=== PATIENT | female | born 1935 | race Caucasian/White ===

== ENCOUNTER 2017-03-12 22:35 | Emergency (ER) | payer MEDICARE, MEDICAID ==
[2017-03-12] MEDS ORDERED: ACETAMINOPHEN 325 MG TABLET PO ONE (23:05)
--- NOTE | 2017-03-12 23:25 | ER Document Report ---
ED General - General Chief Complaint: Fall Stated Complaint: FALL,HIP PAIN Time Seen by Provider: 03/12/17 23:00 Mode of Arrival: Stretcher Information source: Patient, Emergency Med Personnel, Outside Facility Records Cannot obtain history due to: Dementia TRAVEL OUTSIDE OF THE [place] IN LAST 30 DAYS: No - HPI Notes: Patient is a 82-year-old female history of dementia comes from local [facility] with report that she usually only gets around in a wheelchair but she attempted to get out of bed and slid down to the floor, presents now with complaint of left knee pain, right elbow pain right lateral chest wall pain and neck and upper back pain. She also reports pain to the posterior pelvis. She denies any loss of consciousness or weakness or headache or head injury. Patient was alert and interactive with stable vital signs for EMS. - Related Data Allergies/Adverse Reactions: Sulfa (Sulfonamide Antibiotics) Allergy (Severe, Verified 01/17/16 11:31) Hives Quinolones Adverse Reaction (Severe, Verified 01/17/16 11:31) Hives Past Medical History - General Information source: Patient - Social History Smoking Status: Never Smoker Frequency of alcohol use: None Drug Abuse: None Lives with: Alf Family History: Reviewed & Not Pertinent - Past Medical History Cardiac Medical History: Reports: Hx Coronary Artery Disease, Hx Hypertension, Hx Peripheral Vascular Disease Pulmonary Medical History: Reports: Hx COPD Endocrine Medical History: Reports: Hx Diabetes Mellitus Type 2 GI Medical History: Reports: Hx Gastroesophageal Reflux Disease Musculoskeltal Medical History: Reports Hx Arthritis Past Surgical History: Reports: Hx Appendectomy, Hx Cholecystectomy, Hx Hysterectomy - Immunizations Immunizations up to date: Yes Hx Pneumococcal Vaccination: 11/01/10 Review of Systems - Review of Systems Notes: REVIEW OF SYSTEMS: CONSTITUTIONAL : Denies fever, chills, or sweats. Denies recent illness. EENT: Denies eye, ear, throat, or mouth pain or symptoms. Denies nasal or sinus congestion or discharge. Denies throat, tongue, or mouth swelling or difficulty swallowing. CARDIOVASCULAR: Patient denies any anterior left sided chest pain. Denies palpitations or racing or irregular heart beat. Denies ankle edema. RESPIRATORY: Denies cough, cold, or chest congestion. Denies shortness of breath, difficulty breathing, or wheezing. GASTROINTESTINAL: Denies abdominal pain or distention. Denies nausea, vomiting , or diarrhea. Denies blood in vomitus, stools, or per rectum. Denies black, tarry stools. Denies constipation. GENITOURINARY: Denies difficulty urinating, painful urination, burning, frequency, blood in urine, or discharge. FEMALE GENITOURINARY: Denies vaginal bleeding, heavy or abnormal periods, irregular periods. Denies vaginal discharge or odor. MUSCULOSKELETAL: See history of present illness SKIN: Denies rash, lesions or sores. HEMATOLOGIC : Denies easy bruising or bleeding. LYMPHATIC: Denies swollen, enlarged glands. NEUROLOGICAL: Chronic confusion and dementia unchanged. Denies passing out or loss of consciousness. Denies headache. Denies weakness or paralysis or loss of use of either side. Denies problems with gait or speech. Denies sensory loss, numbness, or tingling. Denies seizures. PSYCHIATRIC: Denies anxiety or stress. Denies depression, suicidal ideation, or homicidal ideation. ALL OTHER SYSTEMS REVIEWED AND NEGATIVE. Dictation was performed using [employer] voice recognition software Physical Exam - Vital signs Vitals: Resp Pulse Ox 27 H 94 03/12/17 22:51 03/12/17 22:51 - Notes Notes: PHYSICAL EXAMINATION: GENERAL: Well-appearing, well-nourished and in no acute distress. HEAD: Atraumatic, normocephalic. EYES: Pupils equal round and reactive to light, extraocular movements intact, conjunctiva are normal. ENT: Nares patent, oropharynx clear without exudates. Moist mucous membranes. NECK: Normal range of motion, supple without lymphadenopathy LUNGS: Breath sounds clear to auscultation bilaterally and equal. No wheezes rales or rhonchi. HEART: Regular rate and rhythm without murmurs ABDOMEN: Soft, nontender, nondistended abdomen. No guarding, no rebound. No masses appreciated. Female : deferred Musculoskeletal: Patient has pain to lower cervical spine and upper thoracic spine without bony deformity or crepitance. There is some mild pain posterior aspect of the right shoulder but good range of motion to the shoulder she also has some pain right anterolateral rib cage, but there is no crepitance or bony deformity or subcutaneous emphysema. No contusions noted anywhere with the exception of right elbow where she has some pain more medially but shows a good range of motion. She also has some discomfort to the left knee more over the patella. Gross ligamentous structures appear intact. Ears also pain to the posterior sacral region extending slightly over to the left but there is a good range of motion to the left hip. Good distal pulses. No other bony deformity or crepitance. NEUROLOGICAL: Cranial nerves grossly intact. Normal speech, normal gait. Normal sensory, motor exams. Patient is alert to person which is her baseline. She thinks she is still in her home at the current time. PSYCH: Normal mood, normal affect. SKIN: Warm, Dry, normal turgor, no rashes or lesions noted. Course - Re-evaluation Re-evalutation: 03/12/17 23:32 Patient given Tylenol by mouth. 03/13/17 02:[address] X-rays and CT scan are negative. Blood sugar is normal. No evidence for acute fracture, pneumothorax or other acute injury. - Vital Signs Vital signs: Temp Pulse Resp BP Pulse Ox 98.2 F 99 17 160/79 H 92 03/12/17 23:27 03/12/17 23:27 03/12/17 23:30 03/12/17 23:27 03/12/17 23:30 Discharge - Discharge Clinical Impression: Accidental fall Qualifiers: Encounter type: initial encounter Qualified Code(s): W19.XXXA - Unspecified fall, initial encounter Neck strain Qualifiers: Encounter type: initial encounter Qualified Code(s): S16.1XXA - Strain of muscle, fascia and tendon at neck level, initial encounter Back strain Qualifiers: Encounter type: initial encounter Qualified Code(s): S39.012A - Strain of muscle, fascia and tendon of lower back, initial encounter Elbow contusion Qualifiers: Encounter type: initial encounter Laterality: right Qualified Code(s): S50.01XA - Contusion of right elbow, initial encounter Knee contusion Qualifiers: Encounter type: initial encounter Laterality: left Qualified Code(s): S80.02XA - Contusion of left knee, initial encounter Chest wall contusion Qualifiers: Encounter type: initial encounter Laterality: right Qualified Code(s): S20.211A - Contusion of right front wall of thorax, initial encounter Condition: Stable Disposition: HOME-SNF (ED ONLY) Instructions: Neck Injury (Cervical Strain) ([facility]), Upper Back Strain ([facility]), Rib Contusion ([facility]) Additional Instructions: take precautions to prevent falls.
[2017-03-13 04:07] VITALS: BP 159/84
== END 2017-03-13 04:41 ==
LOC: ER 22:35
DX: S16.1XXA Strain of muscle, fascia and tendon at neck level, initial encounter (principal); S39.012A Strain of muscle, fascia and tendon of lower back, initial encounter; S50.01XA Contusion of right elbow, initial encounter; S80.02XA Contusion of left knee, initial encounter; S20.211A Contusion of right front wall of thorax, initial encounter; W06.XXXA Fall from bed, initial encounter; Y93.89 Activity, other specified; Y92.122 Bedroom in nursing home as the place of occurrence of the external cause; Z99.3 Dependence on wheelchair; M25.562 Pain in left knee; M25.521 Pain in right elbow; R07.89 Other chest pain; M54.2 Cervicalgia; M54.89 Other dorsalgia; M25.511 Pain in right shoulder; M54.5 Low back pain; I25.10 Atherosclerotic heart disease of native coronary artery without angina pectoris; I10 Essential (primary) hypertension; J44.9 Chronic obstructive pulmonary disease, unspecified; E11.9 Type 2 diabetes mellitus without complications; Z88.2 Allergy status to sulfonamides
CPT/HCPCS: 99285; 82962; 72220; 73080; 73562; 72170; 71250; 72125; A9270

== ENCOUNTER 2017-06-11 17:08 | Observation (INO) | payer MEDICARE, MEDICAID ==
[2017-06-11] MEDS ORDERED: NORMAL SALINE 1000 ML 1,000 ML IV ONE (17:13)
--- NOTE | 2017-06-11 17:32 | ER Document Report ---
ED General - General Stated Complaint: UNRESPONSIVE Time Seen by Provider: 06/11/17 17:11 Information source: Patient Notes: 82-year-old female that presents today from the [facility] secondary to some decreased level of responsiveness. The nurse states that she went to see the patient and noticed that the patient was less responsive. She performed an Accu-Chek and found to be in the 300s. I called and spoke to her directly, Oziel, who denies any recent nausea, vomiting, fevers , diarrhea, or coughing. She states the patient is normally disoriented but responsive. No recent change in medications. TRAVEL OUTSIDE OF THE [place] IN LAST 30 DAYS: No - HPI Onset: Other - Unknown time of onset Onset/Duration: Constant Quality of pain: Other - Unable to determine secondary to patient's condition Severity: Severe Pain Level: 1 Associated symptoms: Other - Unable to determine secondary to patient's condition Exacerbated by: Other - Unable to determine secondary to patient's condition Relieved by: Other - Unable to determine secondary to patient's condition Similar symptoms previously: Yes Recently seen / treated by doctor: No - Related Data Allergies/Adverse Reactions: Sulfa (Sulfonamide Antibiotics) Allergy (Severe, Verified 01/17/16 11:31) Hives Quinolones Adverse Reaction (Severe, Verified 01/17/16 11:31) Hives Past Medical History - General Information source: Emergency Med Personnel - Social History Smoking Status: Unknown if Ever Smoked Cigarette use (# per day): No Chew tobacco use (# tins/day): No Smoking Education Provided: No Frequency of alcohol use: None Family History: Reviewed & Not Pertinent - Past Medical History Cardiac Medical History: Reports: Hx Coronary Artery Disease, Hx Hypertension, Hx Peripheral Vascular Disease Pulmonary Medical History: Reports: Hx COPD Endocrine Medical History: Reports: Hx Diabetes Mellitus Type 2 GI Medical History: Reports: Hx Gastroesophageal Reflux Disease Musculoskeltal Medical History: Reports Hx Arthritis Past Surgical History: Reports: Hx Appendectomy, Hx Cholecystectomy, Hx Hysterectomy - Immunizations Immunizations up to date: Yes Hx Pneumococcal Vaccination: 11/01/10 Review of Systems - Review of Systems -: Yes ROS unobtainable due to patient's medical condition Physical Exam - Vital signs Notes: Reviewed vital signs and nursing note as charted by RN. CONSTITUTIONAL: Patient does have decreased mentation but opens her eyes to questions and nods yes and no appropriately HEAD: Normocephalic; atraumatic EYES: PERRL; full extraocular range of motion ENT: Normal nose; no rhinorrhea; moist mucous membranes; pharynx without lesions noted NECK: Supple without meningismus; non-tender CARD: Regular rate and rhythm; no murmurs, no clicks, no rubs, no gallops; symmetric distal pulses RESP: Normal chest excursion without splinting or tachypnea; breath sounds clear and equal bilaterally; no obvious rhonchi or rales present ABD/GI: Normal bowel sounds; non-distended; soft, no tenderness elicited to deep palpation of all 4 quadrants of the abdomen; no abdominal bruits or palpable masses BACK: The patient was rolled showing no acute lesions to the back or spine. Patient appears to have a stage I sacral decubitus ulcer EXT: Normal passive range of motion of all joints; no edema SKIN: No acute lesions noted NEURO: Patient has no obvious focal weakness to the upper lower extremities Course - Re-evaluation Re-evalutation: Given the above history and physical examination, patient was placed immediately on a monitor. Portable x-ray of the chest, blood, blood cultures, urine catheterization, and CT scan of the head were ordered. Given that we do not know the time of onset of the patient's symptoms I do not believe that the patient is a TPA candidate. Patient has a history of UTI with sepsis. A liter of fluid has been given. Lactic acid is pending. 06/11/17 17:31 EKG shows a heart of 72, normal sinus rhythm, normal axis, no obvious ST elevation or depression. 06/11/17 18:21 Lactic acid is recorded. Rocephin has been started. CT scan of the head shows no acute abnormality. X-ray of the chest show some cardiac enlargement with some increased vascular congestion. I have added a BNP. 06/11/17 18:22 Urinalysis as recorded. I have added another 500 cc of fluid. I understand that this is not 30 cc/kg, but given the patient's stable blood pressure, heart rate, vascular congestion on the lung x-ray, I do not believe extra fluid is necessary at this time. - Laboratory Result Diagrams: 06/11/17 17:25 06/11/17 17:25 Laboratory results interpreted by me: 06/11/17 06/11/17 06/11/17 17:25 17:25 17:25 RDW 14.7 H Est GFR (Non-Af Amer) 59 L Glucose 167 H Lactic Acid 3.3 H Urine Protein Urine Blood Ur Leukocyte Esterase 06/11/17 17:25 RDW Est GFR (Non-Af Amer) Glucose Lactic Acid Urine Protein 100 H Urine Blood SMALL H Ur Leukocyte Esterase LARGE H Critical Care Note - Critical Care Note Total time excluding time spent on procedures (mins): 40 Discharge - Discharge Clinical Impression: Sepsis due to urinary tract infection Condition: Serious Disposition: ADMITTED INPATIENT Admitting Provider: Hospitalist Unit Admitted: IMCU
[2017-06-11 17:44] LABS: ABSOLUTE BASOPHILS # (AUTO) 0.1 10^3/uL (0.0-0.2); ABSOLUTE EOSINOPHILS # (AUTO) 0.1 10^3/uL (0.0-0.6); ABSOLUTE LYMPHOCYTES (AUTO) 1.7 10^3/uL (0.5-4.7); ABSOLUTE MONOCYTES (AUTO) 0.6 10^3/uL (0.1-1.4); ABSOLUTE NEUT (AUTO) 7.5 10^3/uL (1.7-8.2); BASOPHILS % (AUTO) 0.6 % (0-2); EOSINOPHILS % (AUTO) 0.5 % (0-6); HEMATOCRIT 41.6 % (36.0-47.0); HEMOGLOBIN 13.9 g/dL (12.0-15.5); HGB HCT DIFFERENCE 0.1; LYMPHOCYTES % (AUTO) 17.4 % (13-45); MEAN CORPUSCULAR HEMOGLOBIN 29.4 pg (27.0-33.4); MEAN CORPUSCULAR HGB CONC 33.4 g/dL (32.0-36.0); MEAN CORPUSCULAR VOLUME 88 fl (80-97); MONOCYTES % (AUTO) 6.3 % (3-13); RED BLOOD COUNT 4.73 10^6/uL (3.72-5.28); RED CELL DISTRIBUTION WIDTH 14.7 % (11.5-14.0); SEGMENTED NEUTROPHILS % (AUTO) 75.2 % (42-78)
[2017-06-11 18:02] LABS: ALANINE AMINOTRANSFERASE 25 U/L (9-52); ALBUMIN 3.6 g/dL (3.5-5.0); ALKALINE PHOSPHATASE 72 U/L (38-126); ANION GAP 13 (5-19); ASPARTATE AMINO TRANSFERASE 27 U/L (14-36); BILIRUBIN,DIRECT 0.4 mg/dL (0.0-0.4); BILIRUBIN,TOTAL 0.6 mg/dL (0.2-1.3); BLOOD UREA NITROGEN 14 mg/dL (7-20); CARBON DIOXIDE 23 mmol/L (22-30); CHLORIDE 107 mmol/L (98-107); CREATININE RESULT 0.91 mg/dL (0.52-1.25); GLUCOSE 167 mg/dL (75-110); SODIUM 142.7 mmol/L (137-145); TOTAL PROTEIN 7.1 g/dL (6.3-8.2)
[2017-06-11] MEDS ORDERED: CEFTRIAXONE RTU 1 GM/D5W 50 ML IV ONE (18:02)
--- NOTE | 2017-06-11 18:02 | RADIOLOGY REPORT (SQ) ---
EXAM DESCRIPTION: CT HEAD WITHOUT COMPLETED DATE/TIME: 06/11/2017 5:46 pm REASON FOR STUDY: tr1, josue COMPARISON: 04/18/2016 TECHNIQUE: Axial images acquired through the brain without intravenous contrast. Images reviewed wi th bone, brain and subdural windows. Images stored on PACS. All CT scanners at this facility use dose modulation, iterative reconstruction, and/or weight based d osing when appropriate to reduce radiation dose to as low as reasonably achievable (ALARA). [facility]: Dose Right [facility]: CareDose [facility]: Dose Right [facility]: Teradose 4D [facility]: Smart Nfocus Neuromedical RADIATION DOSE: Up-to-date CT equipment and radiation dose reduction techniques were employed. CTDIv ol: 28.0 mGy. DLP: 448 mGy-cm.mGy. LIMITATIONS: None. FINDINGS: VENTRICLES: Prominent. CEREBRUM: No masses. No hemorrhage. No midline shift. Areas of low density in the white matter mos t likely due to chronic micro-vascular ischemic change. No evidence for acute infarction. CEREBELLUM: No masses. No hemorrhage. No alteration of density. No evidence for acute infarction. EXTRAAXIAL SPACES: Age-related involutional change. No fluid collections. No masses. ORBITS AND GLOBE: No intra- or extraconal masses. Normal contour of globe without masses. CALVARIUM: No fracture. PARANASAL SINUSES: No fluid or mucosal thickening. SOFT TISSUES: No mass or hematoma. OTHER: No other significant finding. IMPRESSION: CHRONIC CHANGES OF ATROPHY AND MICROVASCULAR ISCHEMIA. NO ACUTE PROCESS. TECHNICAL DOCUMENTATION: JOB ID: [id number] Quality ID # [id number]: Final reports with documentation of one or more dose reduction techniques (e.g., Au tomated exposure control, adjustment of the mA and/or kV according to patient size, use of iterative reconstruction technique) 2010 [employer]- All Rights Reserved
--- NOTE | 2017-06-11 18:03 | RADIOLOGY REPORT (SQ) ---
EXAM DESCRIPTION: CHEST SINGLE VIEW COMPLETED DATE/TIME: 06/11/2017 5:53 pm REASON FOR STUDY: Tr1; unresponsive COMPARISON: 04/18/2016 NUMBER OF VIEWS: One view. TECHNIQUE: Single frontal radiographic view of the chest acquired. LIMITATIONS: None. FINDINGS: LUNGS AND PLEURA: No opacities, masses or pneumothorax. No pleural effusion. MEDIASTINUM AND HILAR STRUCTURES: No masses or contour abnormality. HEART AND VASCULATURE: Cardiac enlargement. Vascular congestion. BONES: No acute findings. HARDWARE: None in the chest. OTHER: No other significant finding. IMPRESSION: CARDIAC ENLARGEMENT. VASCULAR CONGESTION. TECHNICAL DOCUMENTATION: JOB ID: [id number] [employer]- All Rights Reserved
[2017-06-11 18:16] LABS: APPEARANCE,URINE CLOUDY; BILIRUBIN,URINE NEGATIVE (NEGATIVE); GLUCOSE, URINE NEGATIVE (NEGATIVE); KETONES,URINE NEGATIVE (NEGATIVE); LEUKOCYTE ESTERASE,URINE LARGE (NEGATIVE); NITRITE,URINE NEGATIVE (NEGATIVE); PROTEIN,URINE 100 mg/dL (NEGATIVE); URINE SPECIFIC GRAVITY 1.008; UROBILINOGEN,URINE NEGATIVE mg/dL (<2.0)
[2017-06-11] MEDS ORDERED: NORMAL SALINE 1000 ML 500 ML IV ONE (18:25)
--- NOTE | 2017-06-11 22:43 | EKG REPORT ---
SEVERITY:- ABNORMAL ECG - SINUS RHYTHM CONSIDER INFERIOR INFARCT LATERAL INFARCT, OLD : Confirmed by: Ly Cummings 11-Jun-2017 22:43:10
[2017-06-11] MEDS ORDERED: 1/2 NORMAL SALINE 1,000 ML IV PRN (23:59)
[2017-06-12] MEDS ORDERED: ACETAMINOPHEN 325 MG TABLET PO PRN (00:05)
[2017-06-12] MEDS ORDERED: DEXTROSE 50%-WATER SYRINGE 12.5 GM/25 ML DOSE IV PRN (00:13)
[2017-06-12] MEDS ORDERED: DEXTROSE 40% GEL 15 GM TUBE X 2 PO PRN (00:13)
[2017-06-12] MEDS ORDERED: DEXTROSE 50%-WATER SYRINGE 25 GM/50 ML DOSE IV PRN (00:13)
[2017-06-12] MEDS ORDERED: INSULIN LISPRO 100 UNIT/ML 3 ML VIAL SUBCUT PRN (00:13)
[2017-06-12] MEDS ORDERED: GLUCAGON,HUMAN RECOMB 1 MG INJ IM PRN (00:13)
[2017-06-12] MEDS ORDERED: DEXTROSE 40% GEL 15 GM TUBE PO PRN (00:13)
[2017-06-12] MEDS ORDERED: LANSOPRAZOLE 15 MG TAB.RAP.DR PO SCH (06:00)
[2017-06-12] MEDS: METFORMIN HCL 500 MG TABLET PO SCH ×2 (08:29→16:23)
[2017-06-12] MEDS ORDERED: LOSARTAN POTASSIUM 50 MG TABLET PO SCH (10:00)
[2017-06-12] MEDS ORDERED: ASPIRIN 81 MG TABLET, CHEWABLE PO SCH (10:00)
[2017-06-12] MEDS ORDERED: DONEPEZIL HCL 5 MG TABLET PO SCH (10:00)
[2017-06-12] MEDS ORDERED: DULOXETINE HCL 30 MG CAPSULE.DR PO SCH (10:00)
[2017-06-12] MEDS ORDERED: CEFTRIAXONE 1 GM/D5W RTU 1 GM/50 ML RTUPB IV SCH (10:00)
--- NOTE | 2017-06-12 14:51 | PDOC H&P ---
History of Present Illness Admission Date/PCP: 06/11/17 19:16 History of Present Illness: FREDERICK FONSECA is a 82 year old female, she was a history of dementia, resident of the skilled nursing at [facility], she was transferred to the emergency room for evaluation of altered mental status. She was evaluated in the emergency room, CAT scan of the head was done it was negative for any acute stroke, blood work showed lactic acidosis, the urinalysis was abnormal, UTI was suspected as the potential etiology of altered mental status. She was given a dose of intravenous ceftriaxone in the emergency room and subsequently admission was advised by the emergency room physician. The last time she was admitted in this hospital,04/18/2016 at the time she had Proteus UTI with associated metabolic encephalopathy and altered mental status. At that time the organism was resistant to ampicillin, fluoroquinolones, Macrobid, it was sensitive to cephalosporins including cefuroxime, ceftriaxone. The Utilization nursing staff stated that patient does not meet for inpatient care she is only appropriate for observation. Past Medical History Cardiac Medical History: Reports: Peripheral Vascular Disease Pulmonary Medical History: Reports: Chronic Obstructive Pulmonary Disease (COPD) Endocrine Medical History: Reports: Diabetes Mellitus Type 2 GI Medical History: Reports: Gastroesophageal Reflux Disease Musculoskeltal Medical History: Reports: Arthritis Psychiatric Medical History: Reports: Dementia Past Surgical History Past Surgical History: Reports: Appendectomy, Cholecystectomy, Hysterectomy Social History Smoking Status: Former Smoker Frequency of Alcohol Use: None Hx Recreational Drug Use: No Drugs: None Hx Prescription Drug Abuse: No Family History Family History: Reviewed & Not Pertinent Parental Family History Reviewed: Yes Children Family History Reviewed: Yes Sibling(s) Family History Reviewed.: Yes Medication/Allergy Home Medications: Acetaminophen [Tylenol 325 mg Tablet] 650 mg PO Q6HP PRN 06/11/17 Aspirin [Aspirin 81 mg Chewable Tablet] 81 mg PO DAILY 06/11/17 Donepezil HCl [Aricept] 10 mg PO DAILY 06/11/17 Duloxetine HCl [Cymbalta] 60 mg PO DAILY 06/11/17 Insulin Aspart [Novolog Insulin 100 Unit/1 ml 10 ml] 0 unit SUBCUT .SLD SCALE Losartan Potassium [Cozaar 100 mg Tablet] 100 mg PO DAILY 06/11/17 Metformin HCl [Glucophage] 1,000 mg PO Q12 06/11/17 Omeprazole 20 mg PO DAILY 06/11/17 Allergies/Adverse Reactions: Sulfa (Sulfonamide Antibiotics) Allergy (Severe, Verified 01/17/16 11:31) Hives Quinolones Adverse Reaction (Severe, Verified 01/17/16 11:31) Hives Review of Systems ROS unobtainable: Due to mental status Physical Exam Vital Signs: Temp Pulse Resp BP Pulse Ox 98.2 F 80 16 135/61 H 99 06/12/17 11:53 06/12/17 11:53 06/12/17 11:53 06/12/17 11:53 06/12/17 11:53 Intake & Output 06/11/17 06/12/17 06/13/17 06:59 06:59 06:59 Intake Total 964 Output Total 2 Balance 962 General appearance: PRESENT: no acute distress Head exam: PRESENT: atraumatic, normocephalic Eye exam: PRESENT: PERRLA Ear exam: PRESENT: normal external ear exam Neck exam: PRESENT: full ROM Respiratory exam: PRESENT: clear to auscultation eder Cardiovascular exam: PRESENT: RRR, +S1, +S2 Vascular exam: PRESENT: normal capillary refill Rectal exam: PRESENT: deferred Neurological exam: PRESENT: alert Psychiatric exam: PRESENT: appropriate affect, normal mood Skin exam: PRESENT: dry, intact, warm Results Laboratory Results: 06/11/17 06/11/17 19:26 21:54 Lactic Acid 3.2 H 4.2 H Impressions: Chest X-Ray 06/11/17 17:12 IMPRESSION: CARDIAC ENLARGEMENT. VASCULAR CONGESTION. Head CT 06/11/17 17:12 IMPRESSION: CHRONIC CHANGES OF ATROPHY AND MICROVASCULAR ISCHEMIA. NO ACUTE PROCESS. Assessment & Plan - Diagnosis (1) Urinary tract infection Qualifiers: Urinary tract infection type: acute cystitis Hematuria presence: without hematuria Qualified Code(s): N30.00 - Acute cystitis without hematuria Is this a current diagnosis for this admission?: YesPlan: She was treated with IV ceftriaxone (2) Metabolic encephalopathy Is this a current diagnosis for this admission?: Yes (3) Type 2 diabetes mellitus Qualifiers: Diabetes mellitus complication status: with neurologic complications Diabetes mellitus complication detail: with polyneuropathy Diabetes mellitus fdc insulin use: with fdc use Qualified Code(s): E11.42 - Type 2 diabetes mellitus with diabetic polyneuropathy; Z79.4 - terminal carman (current) use of insulin Is this a current diagnosis for this admission?: Yes
--- NOTE | 2017-06-12 14:57 | PDOC TRANSFER SUMMARY ---
General - Admit/Disc Date/PCP Admission Date/Primary Care Provider: 06/11/17 19:16 Discharge Date: 06/12/17 - Discharge Diagnosis (1) Urinary tract infection Is this a current diagnosis for this admission?: Yes (2) Metabolic encephalopathy Is this a current diagnosis for this admission?: Yes (3) Type 2 diabetes mellitus Is this a current diagnosis for this admission?: Yes - Additional Information Home Medications: Acetaminophen [Tylenol 325 mg Tablet] 650 mg PO Q6HP PRN 06/11/17 Aspirin [Aspirin 81 mg Chewable Tablet] 81 mg PO DAILY 06/11/17 Donepezil HCl [Aricept] 10 mg PO DAILY 06/11/17 Duloxetine HCl [Cymbalta] 60 mg PO DAILY 06/11/17 Insulin Aspart [Novolog Insulin (Aspart) 100 unit/mL] 0 unit SUBCUT .SLD SCALE 06/11/17 Losartan Potassium [Cozaar 100 mg Tablet] 100 mg PO DAILY 06/11/17 Metformin HCl [Glucophage] 1,000 mg PO Q12 06/11/17 Omeprazole 20 mg PO DAILY 06/11/17 Cefuroxime Axetil [Ceftin 500 mg Tablet] 1 tab PO BID #20 tablet 06/12/17 History of Present Illness Admission Date/PCP: 06/11/17 19:16 History of Present Illness: FREDERICK FONSECA is a 82 year old female, she was a history of dementia, resident of the alf at [facility], she was transferred to the emergency room for evaluation of altered mental status. She was evaluated in the emergency room, CAT scan of the head was done it was negative for any acute stroke, blood work showed lactic acidosis, the urinalysis was abnormal, UTI was suspected as the potential etiology of altered mental status. She was given a dose of intravenous ceftriaxone in the emergency room and subsequently admission was advised by the emergency room physician. The last time she was admitted in this hospital,04/18/2016 at the time she had Proteus UTI with associated metabolic encephalopathy and altered mental status. At that time the organism was resistant to ampicillin, fluoroquinolones, Macrobid, it was sensitive to cephalosporins including cefuroxime, ceftriaxone. The Utilization nursing staff stated that patient does not meet for inpatient care she is only appropriate for observation. Hospital Course Hospital Course: Patient was admitted for the management of UTI associated with metabolic encephalopathy, she was empirically treated with IV antibiotic ceftriaxone to cover for Proteus mirabilis, that was the only thing that was cultured in the urine the last time she was admitted, April 18, 2016. She has been transferred back to alf to continue the antibiotic. Physical Exam Vital Signs: Temp Pulse Resp BP Pulse Ox 98.2 F 91 16 135/61 H 99 06/12/17 11:53 06/12/17 14:00 06/12/17 11:53 06/12/17 11:53 06/12/17 11:53 Intake & Output 06/11/17 06/12/17 06/13/17 06:59 06:59 06:59 Intake Total 964 Output Total 2 Balance 962 General appearance: PRESENT: no acute distress Eye exam: PRESENT: PERRLA Respiratory exam: PRESENT: clear to auscultation eder Cardiovascular exam: PRESENT: +S1, +S2 GI/Abdominal exam: PRESENT: soft Neurological exam: PRESENT: alert Results Laboratory Results: 06/11/17 06/11/17 19:26 21:54 Lactic Acid 3.2 H 4.2 H Impressions: Chest X-Ray 06/11/17 17:12 IMPRESSION: CARDIAC ENLARGEMENT. VASCULAR CONGESTION. Head CT 06/11/17 17:12 IMPRESSION: CHRONIC CHANGES OF ATROPHY AND MICROVASCULAR ISCHEMIA. NO ACUTE PROCESS.
[2017-06-12 15:26] LABS: ABSOLUTE BASOPHILS # (AUTO) 0.1 10^3/uL (0.0-0.2); ABSOLUTE EOSINOPHILS # (AUTO) 0.1 10^3/uL (0.0-0.6); ABSOLUTE LYMPHOCYTES (AUTO) 2.9 10^3/uL (0.5-4.7); ABSOLUTE MONOCYTES (AUTO) 0.8 10^3/uL (0.1-1.4); ABSOLUTE NEUT (AUTO) 8.6 10^3/uL (1.7-8.2); BASOPHILS % (AUTO) 0.7 % (0-2); HEMATOCRIT 39.1 % (36.0-47.0); HEMOGLOBIN 13.1 g/dL (12.0-15.5); HGB HCT DIFFERENCE 0.2; MEAN CORPUSCULAR HEMOGLOBIN 29.6 pg (27.0-33.4); MEAN CORPUSCULAR HGB CONC 33.4 g/dL (32.0-36.0); MEAN CORPUSCULAR VOLUME 88 fl (80-97); MONOCYTES % (AUTO) 6.7 % (3-13); RED BLOOD COUNT 4.42 10^6/uL (3.72-5.28); RED CELL DISTRIBUTION WIDTH 14.5 % (11.5-14.0); SEGMENTED NEUTROPHILS % (AUTO) 68.6 % (42-78); WHITE BLOOD COUNT 12.5 10^3/uL (4.0-10.5)
[2017-06-12 15:40] LABS: ALANINE AMINOTRANSFERASE 26 U/L (9-52); ALBUMIN 3.4 g/dL (3.5-5.0); ALKALINE PHOSPHATASE 59 U/L (38-126); ANION GAP 12 (5-19); ASPARTATE AMINO TRANSFERASE 23 U/L (14-36); BILIRUBIN,DIRECT 0.4 mg/dL (0.0-0.4); BILIRUBIN,TOTAL 0.4 mg/dL (0.2-1.3); BLOOD UREA NITROGEN 13 mg/dL (7-20); CALCIUM 8.6 mg/dL (8.4-10.2); CARBON DIOXIDE 20 mmol/L (22-30); CHLORIDE 109 mmol/L (98-107); CREATININE RESULT 0.68 mg/dL (0.52-1.25); GLUCOSE 103 mg/dL (75-110); POTASSIUM 3.4 mmol/L (3.6-5.0); SODIUM 141.2 mmol/L (137-145); TOTAL PROTEIN 6.7 g/dL (6.3-8.2)
[2017-06-12 16:06] VITALS: BP 131/56
[2017-06-12] MEDS ORDERED: POTASSIUM CHLORIDE 10 MEQ TABLET.SA PO ONE (17:00)
[2017-06-13] MEDS ORDERED: ENOXAPARIN SODIUM INJ 30 MG/0.3 ML DISP.SYRIN SUBCUT SCH (10:00)
== END 2017-06-12 20:36 ==
LOC: ER 17:08 → UNDOADMIN 19:16 → EH 19:16 → 3W 22:16 → INTOOBSV 22:16 → 3W 22:32 → EH 22:32
PROVIDERS: ADMIT Internal Medicine; ATTEND Internal Medicine
DX: N30.00 Acute cystitis without hematuria (principal); B96.4 Proteus (mirabilis) (morganii) as the cause of diseases classified elsewhere; G93.41 Metabolic encephalopathy; E11.42 Type 2 diabetes mellitus with diabetic polyneuropathy; F03.90 Unspecified dementia, unspecified severity, without behavioral disturbance, psychotic disturbance, mood disturbance, and anxiety; K21.9 Gastro-esophageal reflux disease without esophagitis; I73.9 Peripheral vascular disease, unspecified; Z79.82 Long term (current) use of aspirin; Z79.899 Other long term (current) drug therapy; Z79.4 Long term (current) use of insulin; Z87.440 Personal history of urinary (tract) infections; Z90.49 Acquired absence of other specified parts of digestive tract; Z90.710 Acquired absence of both cervix and uterus; Z87.891 Personal history of nicotine dependence
CPT/HCPCS: 93005; 99291; 96361; 96365; 36415 ×2; 87040; 87086; 82962; 85025 ×2; 87077; 87088; 80053 ×2; 81001; 84484; 87186; 83605; 83880; 71010; 70450; 93010; G0378 ×3; A9270 ×7; J7030; J0696 ×2

== ENCOUNTER 2017-07-29 23:49 | Observation (INO) | payer MEDICARE, MEDICAID ==
[2017-07-30] MEDS ORDERED: HYDROMORPHONE HCL INJ/PF 2 MG/ML AMPULE IV ONE (00:35)
--- NOTE | 2017-07-30 00:36 | ER Document Report ---
ED General - General Chief Complaint: Hip Injury Stated Complaint: FALL Time Seen by Provider: 07/30/17 00:07 Notes: Patient is an 82-year-old female who presents after falling landing on her right hip and head. Patient states she tripped and fell over something. Patient is a very difficult historian, is apparently somewhat demented and confused at baseline. Patient states she does not believe she had any kind of syncopal episode resulting today's fall stating that she just simply tripped. She does arrive complaining of severe, constant throbbing pain to her right hip that is worsened by any attempt at moving the hip. Nothing improves the pain. She does not use any form of anticoagulation. She has had falls similar to this in the past. She has not seen her primary doctor regarding today's concerns. She was brought to the hospital by EMS. She is unable to provide any additional meaningful history. TRAVEL OUTSIDE OF THE [place] IN LAST 30 DAYS: No - Related Data Allergies/Adverse Reactions: Sulfa (Sulfonamide Antibiotics) Allergy (Severe, Verified 01/17/16 11:31) Hives Quinolones Adverse Reaction (Severe, Verified 01/17/16 11:31) Hives Past Medical History - General Information source: Patient - Social History Smoking Status: Never Smoker Frequency of alcohol use: None Drug Abuse: None Lives with: Spouse/Significant other Family History: Reviewed & Not Pertinent - Past Medical History Cardiac Medical History: Reports: Hx Coronary Artery Disease, Hx Hypertension, Hx Peripheral Vascular Disease Pulmonary Medical History: Reports: Hx COPD Endocrine Medical History: Reports: Hx Diabetes Mellitus Type 2 GI Medical History: Reports: Hx Gastroesophageal Reflux Disease Musculoskeltal Medical History: Reports Hx Arthritis Psychiatric Medical History: Reports: Hx Dementia, Hx Depression Past Surgical History: Reports: Hx Appendectomy, Hx Cholecystectomy, Hx Hysterectomy - Immunizations Immunizations up to date: Yes Hx Pneumococcal Vaccination: 11/01/10 Review of Systems - Review of Systems Notes: Constitutional: Negative for fever. Eyes: Negative for visual changes. ENT: Negative for facial injury Cardiovascular: Negative for chest injury. Respiratory: Negative for shortness of breath. Gastrointestinal: Negative for abdominal injury. Genitourinary: Negative for genital injury Musculoskeletal: Positive for right hip injury Skin: Negative for laceration/abrasions. Neurological: Positive for head injury. Physical Exam - Vital signs Vitals: Pulse Ox 94 07/29/17 23:57 Interpretation: Normal Notes: PHYSICAL EXAMINATION: GENERAL: Frail, elderly but in no acute distress HEAD: There is a right frontal scalp hematoma. No additional trauma. EYES: Pupils equal round and reactive to light, extraocular movements intact, sclera anicteric, conjunctiva are normal. ENT: nares patent, no oral pharyngeal trauma. No hemotympanum, no Bill's sign , no raccoon eyes. NECK: No midline cervical spine tenderness. Patient able to move their head to 45 bilaterally without any discomfort. LUNGS: Breath sounds clear to auscultation bilaterally and equal. No wheezes rales or rhonchi. HEART: Regular rate and rhythm without murmurs. CHEST WALL: No ecchymosis over the chest wall. ABDOMEN: Soft, nontender, normoactive bowel sounds. No guarding, no rebound. No abdominal bruising EXTREMITIES: Pain on palpation of the right hip. Unable to perform range of motion with the right hip. There is otherwise no acute extremity findings BACK: No midline spinal tenderness, step-offs, or deformities. NEUROLOGICAL: Moves all actually spontaneously and on command PSYCH: Alert, oriented to person and place but not year. Appears somewhat confused SKIN: Warm, Dry, normal turgor, scalp hematoma as above Course - Re-evaluation Re-evalutation: 07/30/17 00:36 Presentation of a well appearing elderly patient in no acute distress, vitals within normal limits after a mechanical mechanical fall. Patient denies a syncopal episode as the cause for today's fall. No focal neurologic deficits on exam, no evidence of basilar skull fracture on exam without evidence of hemotympanum, raccoon eyes, or periauricular hematoma. No papilledema. Patient is not on anticoagulation. GCS is 15. No loss of consciousness. No episodes of vomiting. However, based on patient's age a CT of the head has been obtained which is negative for any acute intracranial bleed. Likewise, patient was unable to be clinically cleared due to age by Ziebach cervical spine criteria. A CT of the cervical spine was also obtained and likewise is negative for any acute fracture. No indication for further imaging of the cervical spine. Chest and abdominal exam are benign without any focal tenderness, shortness of breath, or bruising over the chest or abdominal wall. Patient has no flank tenderness. Patient does have exquisite pain with any palpation of the right hip or attempt at movement of the right lower extremity. An x-ray was obtained and does demonstrate an acute pubic ramus fracture. I discussed the patient's primary care physician Dr. Anderson will admit to the hospital for evaluation by orthopedic surgery and observation. - Vital Signs Vital signs: Temp Pulse Resp BP Pulse Ox 98.3 F 11 L 166/84 H 92 07/30/17 00:03 07/30/17 01:02 07/30/17 00:01 07/30/17 01:02 - Laboratory Result Diagrams: 07/30/17 00:11 07/30/17 00:11 - Diagnostic Test Radiology reviewed: Image reviewed, Reports reviewed Radiology results interpreted by me: 07/30/17 02:32 CT head: No acute intracranial bleed Discharge - Discharge Clinical Impression: Fracture of right superior pubic ramus Qualifiers: Encounter type: initial encounter Fracture type: closed Qualified Code(s): S32.511A - Fracture of superior rim of right pubis, initial encounter for closed fracture Head trauma Qualifiers: Encounter type: initial encounter Qualified Code(s): S09.90XA - Unspecified injury of head, initial encounter Scalp hematoma Qualifiers: Encounter type: initial encounter Qualified Code(s): S00.03XA - Contusion of scalp, initial encounter Condition: Fair Disposition: ADMITTED OBSERVATION Admitting Provider: [employer] Referrals: LATRICE ANDERSON MD [Primary Care Provider] - Follow up as needed
--- NOTE | 2017-07-30 01:48 | RADIOLOGY REPORT (SQ) ---
EXAM DESCRIPTION: HIP RIGHT AP/LATERAL COMPLETED DATE/TIME: 07/30/2017 12:54 am REASON FOR STUDY: fall COMPARISON: 08/21/2008. NUMBER OF VIEWS: Two views. TECHNIQUE: AP pelvis and additional frog-leg view of the right hip. LIMITATIONS: None. FINDINGS: MINERALIZATION: Osteopenia. RIGHT HIP: No fracture or dislocation. No worrisome bone lesions. LEFT HIP: No fracture or dislocation. No worrisome bone lesions. PUBIS AND ISCHIUM: Nondisplaced curvilinear defect of the superior pubic ramus laterally may indicate nondisplaced fracture. PELVIS: No fracture. SACRUM: No fracture or dislocation. No worrisome bone lesions. LOWER LUMBAR SPINE: No fracture or dislocation. No worrisome bone lesions. No significant disc disea se. SOFT TISSUES: No findings. OTHER: Bilateral tubal ligation clips. Mild gaseous bowel distention and stacking of the left lower abdominal quadrant with bowel diameter measuring up to 4.2 cm. IMPRESSION: 1. Nondisplaced fracture/ defect of the lateral right superior pubic ramus. 2. Mild j ejunal ileus pattern partially imaged. TECHNICAL DOCUMENTATION: JOB ID: [id number]- All Rights Reserved
--- NOTE | 2017-07-30 01:54 | RADIOLOGY REPORT (SQ) ---
EXAM DESCRIPTION: CT HEAD WITHOUT COMPLETED DATE/TIME: 07/30/2017 1:02 am REASON FOR STUDY: fall, head trauma COMPARISON: None. TECHNIQUE: Axial images acquired through the brain without intravenous contrast. Images reviewed wi th bone, brain and subdural windows. Images stored on PACS. All CT scanners at this facility use dose modulation, iterative reconstruction, and/or weight based d osing when appropriate to reduce radiation dose to as low as reasonably achievable (ALARA). [facility]: Dose Right [facility]: CareDose [facility]: Dose Right [facility]: Teradose 4D [facility]: Smart Technologies RADIATION DOSE: Up-to-date CT equipment and radiation dose reduction techniques were employed. CTDIv ol: 55.2 mGy. DLP: 1084 mGy-cm. mGy. LIMITATIONS: None. FINDINGS: VENTRICLES: Normal size and contour. CEREBRUM: No masses. No hemorrhage. No midline shift. No evidence for acute infarction. Small lef t anterior parietal infarct. Moderate volume loss. Moderate white matter microangiopathy. Lacunar infarct of the left external capsule. CEREBELLUM: No masses. No hemorrhage. No alteration of density. No evidence for acute infarction. EXTRAAXIAL SPACES: No fluid collections. No masses. ORBITS AND GLOBE: No intra- or extraconal masses. Normal contour of globe without masses. CALVARIUM: No fracture. PARANASAL SINUSES: No fluid or mucosal thickening. SOFT TISSUES: Moderate right anterior parietal scalp swelling/hematoma. OTHER: No other significant finding. IMPRESSION: Moderate scalp hematoma. No acute intracranial findings. EVIDENCE OF ACUTE STROKE: NO. COMMENT: Quality ID # [id number]: Final reports with documentation of one or more dose reduction techniques (e.g., Automated exposure control, adjustment of the mA and/or kV according to patient size, use of iterative reconstruction technique) TECHNICAL DOCUMENTATION: JOB ID: [id number] [employer]- All Rights Reserved
--- NOTE | 2017-07-30 02:05 | RADIOLOGY REPORT (SQ) ---
EXAM DESCRIPTION: CT CERVICAL SPINE WITHOUT COMPLETED DATE/TIME: 07/30/2017 1:02 am REASON FOR STUDY: fall COMPARISON: 03.13.17 TECHNIQUE: Axial images acquired through the cervical spine without intravenous contrast. Images re viewed with lung, soft tissue and bone windows. Reconstructed coronal and sagittal MPR images review ed. Images stored on PACS. All CT scanners at this facility use dose modulation, iterative reconstruction, and/or weight based d osing when appropriate to reduce radiation dose to as low as reasonably achievable (ALARA). [facility]: Dose Right [facility]: CareDose [facility]: Dose Right [facility]: Teradose 4D [facility]: Smart [employer] RADIATION DOSE: Up-to-date CT equipment and radiation dose reduction techniques were employed. CTDIv ol: 22.8 mGy. DLP: 462 mGy-cm. mGy. LIMITATIONS: None. FINDINGS: ALIGNMENT: Chronic degenerative 0.4 cm C4 anterolisthesis, 0.2 cm C3 anterolisthesis, and mild reversed lordotic curvature associated with mild -moderate anterior vertebral compression deform ity at the C5 level. No significant interval change. MINERALIZATION: Osteopenia appear VERTEBRAL BODIES: As above. DISCS: Moderate disc desiccation between the C4 and C6 levels. FACETS, LATERAL MASSES, POSTERIOR ELEMENTS: Moderate spondylosis between the C2 and C5 levels. HARDWARE: None in the spine. VISUALIZED RIBS: No fractures. LUNG APICES AND SOFT TISSUES: No significant or acute findings. OTHER: Atherosclerosis. IMPRESSION: No acute findings. Advanced disc desiccation, spondylosis, degenerative malalignment, a nd [id number] C5 anterior vertebral wedging without significant interval change. TECHNICAL DOCUMENTATION: JOB ID: [id number] Quality ID # [id number]: Final reports with documentation of one or more dose reduction techniques (e.g., Au tomated exposure control, adjustment of the mA and/or kV according to patient size, use of iterative reconstruction technique) 2010 [employer]- All Rights Reserved
[2017-07-30] MEDS ORDERED: LIDOCAINE 5% (700 MG) TRANSDERMAL ADH..PATCH TP ONE (02:26)
[2017-07-30] MEDS ORDERED: ACETAMINOPHEN 325 MG TABLET PO ONE (02:31)
[2017-07-30 02:37] LABS: ANION GAP 9 (5-19); BLOOD UREA NITROGEN 17 mg/dL (7-20); CALCIUM 10.1 mg/dL (8.4-10.2); CARBON DIOXIDE 29 mmol/L (22-30); CHLORIDE 107 mmol/L (98-107); CREATININE RESULT 0.77 mg/dL (0.52-1.25); GLUCOSE 117 mg/dL (75-110); POTASSIUM 3.8 mmol/L (3.6-5.0); SODIUM 145.2 mmol/L (137-145)
[2017-07-30 02:47] LABS: ABSOLUTE BASOPHILS # (AUTO) 0.1 10^3/uL (0.0-0.2); ABSOLUTE EOSINOPHILS # (AUTO) 0.2 10^3/uL (0.0-0.6); ABSOLUTE LYMPHOCYTES (AUTO) 3.4 10^3/uL (0.5-4.7); ABSOLUTE MONOCYTES (AUTO) 1.5 10^3/uL (0.1-1.4); ABSOLUTE NEUT (AUTO) 12.9 10^3/uL (1.7-8.2); BASOPHILS % (AUTO) 0.7 % (0-2); EOSINOPHILS % (AUTO) 0.9 % (0-6); HEMATOCRIT 44.1 % (36.0-47.0); HEMOGLOBIN 14.6 g/dL (12.0-15.5); HGB HCT DIFFERENCE -0.3; LYMPHOCYTES % (AUTO) 18.7 % (13-45); MEAN CORPUSCULAR HEMOGLOBIN 29.5 pg (27.0-33.4); MEAN CORPUSCULAR HGB CONC 33.1 g/dL (32.0-36.0); MEAN CORPUSCULAR VOLUME 89 fl (80-97); MONOCYTES % (AUTO) 8.1 % (3-13); RED BLOOD COUNT 4.95 10^6/uL (3.72-5.28); RED CELL DISTRIBUTION WIDTH 14.4 % (11.5-14.0); SEGMENTED NEUTROPHILS % (AUTO) 71.6 % (42-78)
[2017-07-30] MEDS ORDERED: GLUCAGON,HUMAN RECOMB 1 MG INJ IM PRN (07:18)
[2017-07-30] MEDS ORDERED: DEXTROSE 50%-WATER SYRINGE 12.5 GM/25 ML DOSE IV PRN (07:18)
[2017-07-30] MEDS ORDERED: DEXTROSE 50%-WATER SYRINGE 25 GM/50 ML DOSE IV PRN (07:18)
[2017-07-30] MEDS ORDERED: DEXTROSE 40% GEL 15 GM TUBE PO PRN (07:18)
[2017-07-30] MEDS ORDERED: DEXTROSE 40% GEL 15 GM TUBE X 2 PO PRN (07:18)
[2017-07-30] MEDS ORDERED: INSULIN LISPRO 100 UNIT/ML 3 ML VIAL SUBCUT PRN (07:19)
[2017-07-30] MEDS ORDERED: ACETAMINOPHEN 325 MG TABLET PO PRN (08:13)
[2017-07-30] MEDS ORDERED: (PENDING PHARMACY ID) (Donepezil Hcl [Aricept] 10 MG) PO SCH (10:00)
[2017-07-30] MEDS: LOSARTAN POTASSIUM 50 MG TABLET PO SCH (10:32)
[2017-07-30] MEDS: DULOXETINE HCL 30 MG CAPSULE.DR PO SCH (10:33)
[2017-07-30] MEDS: DONEPEZIL HCL 5 MG TABLET PO SCH (10:37)
[2017-07-30] MEDS: ASPIRIN 81 MG TABLET, CHEWABLE PO SCH (10:38)
[2017-07-30] MEDS: TRAMADOL HCL 50 MG TABLET PO PRN ×2 (10:39→16:22)
[2017-07-30] MEDS: MORPHINE SULFATE 10 MG/ML INJ IV PRN (12:33)
[2017-07-30] MEDS: METFORMIN HCL 500 MG TABLET PO SCH (15:11)
[2017-07-31] MEDS: METFORMIN HCL 500 MG TABLET PO SCH (08:16)
[2017-07-31 10:03] LABS: AMORPHOUS SEDIMENT,URINE TRACE /HPF; APPEARANCE,URINE TURBID; BILIRUBIN,URINE NEGATIVE (NEGATIVE); GLUCOSE, URINE NEGATIVE (NEGATIVE); KETONES,URINE NEGATIVE (NEGATIVE); LEUKOCYTE ESTERASE,URINE NEGATIVE (NEGATIVE); NITRITE,URINE NEGATIVE (NEGATIVE); PROTEIN,URINE 100 mg/dL (NEGATIVE); URINE SPECIFIC GRAVITY 1.015; UROBILINOGEN,URINE NEGATIVE mg/dL (<2.0)
[2017-07-31] MEDS: LOSARTAN POTASSIUM 50 MG TABLET PO SCH (10:31)
[2017-07-31] MEDS: DONEPEZIL HCL 5 MG TABLET PO SCH (10:31)
[2017-07-31] MEDS: DULOXETINE HCL 30 MG CAPSULE.DR PO SCH (10:32)
[2017-07-31] MEDS: ASPIRIN 81 MG TABLET, CHEWABLE PO SCH (10:32)
[2017-07-31] MEDS: MORPHINE SULFATE 10 MG/ML INJ IV PRN (10:32)
--- NOTE | 2017-07-31 11:59 | PDOC H&P ---
History of Present Illness Admission Date/PCP: 07/30/17 03:20 LATRICE ANDERSON MD History of Present Illness: FREDERICK FONSECA is a 82 year old female, with dementia resident of the retirement at [facility], she fell in the retirement, she sustained injury to the aid and the pelvic area, in the emergency room she was evaluated CAT scan of the head was done, it was negative for any acute pathology. X-ray of the hip showed a nondisplaced fracture of the lateral right superior pubic ramus. In the emergency room she was evaluated she was in so much pain hospital admission was advised for pain control. There was no antecedent history of chest pain, no loss of consciousness no shortness of breath. She apparently tripped and fell and sustained injury to the head on the pelvic area. Past Medical History Cardiac Medical History: Reports: Coronary Artery Disease, Hypertension, Peripheral Vascular Disease Pulmonary Medical History: Reports: Chronic Obstructive Pulmonary Disease (COPD) Endocrine Medical History: Reports: Diabetes Mellitus Type 2 GI Medical History: Reports: Gastroesophageal Reflux Disease Musculoskeltal Medical History: Reports: Arthritis Psychiatric Medical History: Reports: Dementia, Depression Past Surgical History Past Surgical History: Reports: Appendectomy, Cholecystectomy, Hysterectomy Social History Lives with: Spouse/Significant other Smoking Status: Never Smoker Frequency of Alcohol Use: None Hx Recreational Drug Use: No Drugs: None Hx Prescription Drug Abuse: No - Advance Directive Resuscitation Status: Full Code Family History Family History: Reviewed & Not Pertinent Parental Family History Reviewed: Yes Children Family History Reviewed: Yes Sibling(s) Family History Reviewed.: Yes Medication/Allergy Home Medications: Acetaminophen [Tylenol 325 mg Tablet] 650 mg PO Q6HP PRN 06/11/17 Aspirin [Aspirin 81 mg Chewable Tablet] 81 mg PO DAILY 06/11/17 Donepezil HCl [Aricept] 10 mg PO DAILY 06/11/17 Duloxetine HCl [Cymbalta] 60 mg PO DAILY 06/11/17 Losartan Potassium [Cozaar 100 mg Tablet] 100 mg PO DAILY 06/11/17 Metformin HCl [Glucophage] 1,000 mg PO BIDBS 06/11/17 Insulin Lispro [Humalog Insulin 100 Unit/1 ml 3 ml Vial] 0 unit SUBCUT .SLD SCALE 07/30/17 Juniper/Kay[place]/Znox/Pet,Wh/William [Endit Ointment] 480 gm TP PRN PRN 07/30/17 Tramadol HCl [Tramadol HCl] 50 mg PO Q6HP PRN 07/30/17 Allergies/Adverse Reactions: Sulfa (Sulfonamide Antibiotics) Allergy (Severe, Verified 01/17/16 11:31) Hives Quinolones Adverse Reaction (Severe, Verified 01/17/16 11:31) Hives Review of Systems Constitutional: PRESENT: headache(s) Eyes: ABSENT: visual disturbances Ears: ABSENT: hearing changes Cardiovascular: ABSENT: chest pain, dyspnea on exertion, edema, orthropnea, palpitations Respiratory: ABSENT: cough, hemoptysis Gastrointestinal: ABSENT: abdominal pain, constipation, diarrhea, hematemesis, hematochezia, nausea, vomiting Genitourinary: ABSENT: dysuria, hematuria Musculoskeletal: ABSENT: joint swelling Integumentary: ABSENT: rash, wounds Neurological: PRESENT: frequent falls Psychiatric: ABSENT: anxiety, depression, homidical ideation, suicidal ideation Endocrine: ABSENT: cold intolerance, heat intolerance, menstrual abnormalities, polydipsia, polyuria Hematologic/Lymphatic: ABSENT: easy bleeding, easy bruising, lymphadenopathy Physical Exam Vital Signs: Temp Pulse Resp BP Pulse Ox 99.2 F 105 H 20 169/77 H 94 07/31/17 07:32 07/31/17 07:32 07/31/17 07:32 07/31/17 07:32 07/31/17 07:32 Intake & Output 07/30/17 07/31/17 08/01/17 06:59 06:59 06:59 Intake Total 0 1050 Output Total 0 Balance 0 1050 Weight 60.8 kg 60.8 kg General appearance: PRESENT: other - She is alert and responsive, she has bruises in the forehead,scalp hematoma Eye exam: PRESENT: conjunctiva pink, EOMI, PERRLA Ear exam: PRESENT: normal external ear exam Mouth exam: PRESENT: moist, tongue midline Neck exam: PRESENT: full ROM Respiratory exam: PRESENT: clear to auscultation eder Cardiovascular exam: PRESENT: RRR, +S1, +S2 Vascular exam: PRESENT: normal capillary refill GI/Abdominal exam: PRESENT: normal bowel sounds, soft Rectal exam: PRESENT: deferred Neurological exam: PRESENT: alert, awake, oriented to person, oriented to place , oriented to time, oriented to situation, CN II-XII grossly intact Psychiatric exam: PRESENT: appropriate affect, normal mood Skin exam: PRESENT: dry, intact, warm Results Laboratory Results: 07/30/17 19:04 Urine Color YELLOW Urine Appearance TURBID Urine pH 6.0 Ur Specific [place] 1.015 Urine Protein 100 H Urine Glucose (UA) NEGATIVE Urine Ketones NEGATIVE Urine Blood NEGATIVE Urine Nitrite NEGATIVE Ur Leukocyte Esterase NEGATIVE Urine WBC (Auto) 1 Urine RBC (Auto) 0 Impressions: Head CT 07/30/17 00:35 IMPRESSION: Moderate scalp hematoma. No acute intracranial findings. EVIDENCE OF ACUTE STROKE: NO. Hip/Pelvis X-Ray 07/30/17 00:35 IMPRESSION: 1. Nondisplaced fracture/ defect of the lateral right superior pubic ramus. 2. Mild jejunal ileus pattern partially imaged. Cervical Spine CT 07/30/17 00:36 IMPRESSION: No acute findings. Advanced disc desiccation, spondylosis, degenerative malalignment, and [id number] C5 anterior vertebral wedging without significant interval change. Assessment & Plan - Diagnosis (1) Fracture of right superior pubic ramus Qualifiers: Encounter type: initial encounter Fracture type: closed Qualified Code(s) : S32.511A - Fracture of superior rim of right pubis, initial encounter for closed fracture Plan: There is no indication for orthopedic intervention in this patient the fracture will take about 4-6 to heal she needs pain control. She is admitted essentially for observation and pain control (2) Scalp hematoma Qualifiers: Encounter type: subsequent encounter Qualified Code(s): S00.03XD - Contusion of scalp, subsequent encounter Is this a current diagnosis for this admission?: Yes (3) Head trauma Qualifiers: Encounter type: initial encounter Qualified Code(s): S09.90XA - Unspecified injury of head, initial encounter Is this a current diagnosis for this admission?: Yes
[2017-07-31 12:04] VITALS: BP 148/61
--- NOTE | 2017-07-31 12:04 | PDOC TRANSFER SUMMARY ---
General - Admit/Disc Date/PCP Admission Date/Primary Care Provider: 07/30/17 03:20 LATRICE ANDERSON MD Discharge Date: 07/31/17 - Discharge Diagnosis (2) Scalp hematoma Is this a current diagnosis for this admission?: Yes (3) Head trauma Is this a current diagnosis for this admission?: Yes - Additional Information Resuscitation Status: Full Code Discharge Diet: Diabetic Discharge Activity: Activity As Tolerated Home Medications: Acetaminophen [Tylenol 325 mg Tablet] 650 mg PO Q6HP PRN 06/11/17 Aspirin [Aspirin 81 mg Chewable Tablet] 81 mg PO DAILY 06/11/17 Donepezil HCl [Aricept] 10 mg PO DAILY 06/11/17 Duloxetine HCl [Cymbalta] 60 mg PO DAILY 06/11/17 Losartan Potassium [Cozaar 100 mg Tablet] 100 mg PO DAILY 06/11/17 Metformin HCl [Glucophage] 1,000 mg PO BIDBS 06/11/17 Insulin Lispro [Humalog Insulin (Lispro) 100 unit/mL] 0 unit SUBCUT .SLD SCALE 07/30/17 Juniper/[place]/Znox/Pet,Wh/William [Endit Ointment] 480 gm TP PRN PRN 07/30/17 Tramadol HCl 50 mg PO Q6HP PRN 07/30/17 Oxycodone HCl/Acetaminophen [Percocet 10-325 Mg Tablet] 1 each PO Q8H 7 Days # 28 tablet 07/31/17 History of Present Illness Admission Date/PCP: 07/30/17 03:20 LATRICE ANDERSON MD History of Present Illness: FREDERICK FONSECA is a 82 year old female, with dementia resident of the fdc at [facility], she fell in the fdc, she sustained injury to the aid and the pelvic area, in the emergency room she was evaluated CAT scan of the head was done, it was negative for any acute pathology. X-ray of the hip showed a nondisplaced fracture of the lateral right superior pubic ramus. In the emergency room she was evaluated she was in so much pain hospital admission was advised for pain control. There was no antecedent history of chest pain, no loss of consciousness no shortness of breath. She apparently tripped and fell and sustained injury to the head on the pelvic area. Hospital Course Hospital Course: Patient was admitted for observation and management of pain from injury and fracture that she sustained when she fell. She sustained a nondisplaced fracture of the lateral right superior pubic ramus. Physical Exam Vital Signs: Temp Pulse Resp BP Pulse Ox 99.2 F 105 H 20 169/77 H 94 07/31/17 07:32 07/31/17 07:32 07/31/17 07:32 07/31/17 07:32 07/31/17 07:32 Intake & Output 07/30/17 07/31/17 08/01/17 06:59 06:59 06:59 Intake Total 0 1050 Output Total 0 Balance 0 1050 Weight 60.8 kg 60.8 kg General appearance: PRESENT: no acute distress Eye exam: PRESENT: PERRLA Respiratory exam: PRESENT: clear to auscultation eder Cardiovascular exam: PRESENT: +S1, +S2 GI/Abdominal exam: PRESENT: soft Neurological exam: PRESENT: alert Results Laboratory Results: 07/30/17 19:04 Urine Color YELLOW Urine Appearance TURBID Urine pH 6.0 Ur Specific [place] 1.015 Urine Protein 100 H Urine Glucose (UA) NEGATIVE Urine Ketones NEGATIVE Urine Blood NEGATIVE Urine Nitrite NEGATIVE Ur Leukocyte Esterase NEGATIVE Urine WBC (Auto) 1 Urine RBC (Auto) 0 Impressions: Head CT 07/30/17 00:35 IMPRESSION: Moderate scalp hematoma. No acute intracranial findings. EVIDENCE OF ACUTE STROKE: NO. Hip/Pelvis X-Ray 07/30/17 00:35 IMPRESSION: 1. Nondisplaced fracture/ defect of the lateral right superior pubic ramus. 2. Mild jejunal ileus pattern partially imaged. Cervical Spine CT 07/30/17 00:36 IMPRESSION: No acute findings. Advanced disc desiccation, spondylosis, degenerative malalignment, and [id number] C5 anterior vertebral wedging without significant interval change.
[2017-07-31] MEDS: TRAMADOL HCL 50 MG TABLET PO PRN (12:35)
== END 2017-07-31 14:34 ==
LOC: ER 23:49 → EH 07-30 03:20 → 4S 07-30 04:50
PROVIDERS: ADMIT Internal Medicine; ATTEND Internal Medicine
DX: S32.511A Fracture of superior rim of right pubis, initial encounter for closed fracture (principal); S09.90XA Unspecified injury of head, initial encounter; S00.03XA Contusion of scalp, initial encounter; S00.83XA Contusion of other part of head, initial encounter; W01.0XXA Fall on same level from slipping, tripping and stumbling without subsequent striking against object, initial encounter; Y92.129 Unspecified place in nursing home as the place of occurrence of the external cause; I25.10 Atherosclerotic heart disease of native coronary artery without angina pectoris; I73.9 Peripheral vascular disease, unspecified; F03.90 Unspecified dementia, unspecified severity, without behavioral disturbance, psychotic disturbance, mood disturbance, and anxiety; M19.90 Unspecified osteoarthritis, unspecified site; E11.9 Type 2 diabetes mellitus without complications; I10 Essential (primary) hypertension; Z91.81 History of falling; Z79.82 Long term (current) use of aspirin; Z79.4 Long term (current) use of insulin; Z79.899 Other long term (current) drug therapy; Z90.49 Acquired absence of other specified parts of digestive tract
CPT/HCPCS: 99285; 96374; 36415; 82962 ×2; 85025; 80048; 81001; 73502; 70450; 72125; G0378 ×2; A9270 ×13; J2270 ×2; J1170

== ENCOUNTER 2019-02-15 09:47 | Emergency (ER) | payer MEDICARE, MEDICAID ==
[2019-02-15] MEDS ORDERED: ETOMIDATE INJ/PF 20 MG/10 ML SDV IV ONE ×2 (09:48→09:57)
[2019-02-15] MEDS ORDERED: NICARDIPINE HCL RTU, ISO-OS 20 MG/200 ML RTUINJ IV ONE (09:51)
[2019-02-15] MEDS ORDERED: NICARDIPINE HCL RTU, ISO-OS 20 MG/200 ML RTUINJ IV PRN (09:57)
[2019-02-15] MEDS ORDERED: SUCCINYLCHOLINE CHLORIDE INJ 200 MG/10 ML VIAL IV ONE (09:58)
[2019-02-15] MEDS ORDERED: PROPOFOL 1,000 MG/100 ML INFUS..BTL IV ONE (10:04)
--- NOTE | 2019-02-15 10:13 | ER Document Report ---
ED Neuro Symptoms/Deficit - General Stated Complaint: POSSIBLE STROKE Time Seen by Provider: 02/15/19 09:55 Primary Care Provider: LATRICE ANDERSON MD [Primary Care Provider] - Follow up as needed TRAVEL OUTSIDE OF THE [place] IN LAST 30 DAYS: No - HPI Notes: Patient is a 84-year-old female that presents to the emergency department for chief complaint of stroke symptoms. Patient [facility] by EMS from [facility] facility. [facility] told EMS that she was seen normal at 9 AM. Someone had removed her breakfast tray and when they were leaving the room they noticed that she was becoming unresponsive and slouching to the left. They told EMS she had paralysis of her left side. EMS states when they arrived she was unresponsive to verbal and painful stimuli. They report [id number] glucose of 221. The deny any report of head injury or blood thinning medications. Patient's baseline is reportedly A and O x3 and functional. Patient is unresponsive and not able to provide any further hi story. Past Medical History: Hypertension, COPD, diabetes Past Surgical History: Hysterectomy, cholecystectomy Social History: Unknown Allergies: Reviewed, see documented allergy list. REVIEW OF SYSTEMS: Unable to obtain because of acuity of condition PHYSICAL EXAMINATION: Vital signs reviewed, nursing noted reviewed. GENERAL: Unresponsive, well-nourished HEAD: Atraumatic, normocephalic. EYES: Dilated right pupil and +1 left pupil, sclera anicteric, conjunctiva are normal. ENT: nares patent, oropharynx clear Dry mucous membranes. NECK: supple without lymphadenopathy LUNGS: Breath sounds clear to auscultation bilaterally and equal. Deep respirations. HEART: Regular rate and rhythm without murmurs ABDOMEN: Soft, No masses appreciated. EXTREMITIES: No long bone deformity, no pitting or edema. NEUROLOGICAL: GCS 3. No movement with painful stimuli. PSYCH: Unresponsive SKIN: Warm, Dry, normal turgor, no rashes or lesions noted on exposed skin - Related Data Allergies/Adverse Reactions: Sulfa (Sulfonamide Antibiotics) Allergy (Severe, Verified 01/17/16 11:31) Hives Quinolones Adverse Reaction (Severe, Verified 01/17/16 11:31) Hives Past Medical History - Social History Smoking Status: Never Smoker Family History: Reviewed & Not Pertinent - Past Medical History Cardiac Medical History: Reports: Hx Coronary Artery Disease, Hx Hypertension, Hx Peripheral Vascular Disease Pulmonary Medical History: Reports: Hx COPD Endocrine Medical History: Reports: Hx Diabetes Mellitus Type 2 GI Medical History: Reports: Hx Gastroesophageal Reflux Disease Musculoskeletal Medical History: Reports Hx Arthritis Psychiatric Medical History: Reports: Hx Dementia, Hx Depression Past Surgical History: Reports: Hx Appendectomy, Hx Cholecystectomy, Hx Hysterectomy - Immunizations Immunizations up to date: Yes Hx Pneumococcal Vaccination: 11/01/10 Course - Re-evaluation Re-evalutation: 02/15/19 10:38 Vitals reviewed. Nursing notes reviewed. Patient presented unresponsive with a GCS of 3. She was on a nonrebreather by EMS and was oxygenating at 95%. CT scan of the brain shows large right intraparenchymal hemorrhage which is consistent with her presentation. Intracranial hemorrhage negates the need for TPA. She was intubated for airway protection. She was started on propofol and Cardene for blood pressure control. She has no apparent medications that would require reversal. I discussed her care with Dr. Trujillo at [facility] who accepts patient for transfer. Laboratory 02/15/19 10:05 PT 15.0 INR 1.[address] 02/15/19 09:53 IMPRESSION: Limited exam secondary to extensive motion artifact. Large intraparenchymal hemorrhage centered within the right frontoparietal lobes, insula and basal ganglia. There is associated intraventricular extension. Significant associated mass effect with approximately 1.6 cm of right to left midline shift and associated subfalcine herniation. Effacement of the ambient cistern and suprasellar cisterns. Foramen magnum remains patent. Pertinent positive or negative findings of the imaging study reported as a CRITICAL EXAM to GUADALUPE MARTE DO at10:07 on 02/15/2019. Category of Critical Exam: Intracranial hemorrhage EVIDENCE OF ACUTE STROKE: Intracranial hemorrhage 02/15/19 10:51 Patient's documentation from her intermediate indicates she is a full code. I did attempt to reach her next of kin contact from intermediate papers but was unable too. 02/15/19 11:44 Patient has remained hemodynamically stable for transfer. I did talk to Dr. Trujillo again and updated him on patient's blood work and presentation. She did have some movement of her right lower extremity while off sedation prior to transfer. 02/15/19 12:05 - Laboratory Result Diagrams: 02/15/19 10:05 02/15/19 10:05 - EKG Interpretation by Me Additional EKG results interpreted by me: 02/15/19 10:44 Interpreted by myself 1003: Normal sinus rhythm, rate 92, normal axis, no ectopy, no STEMI Procedures - Intubation Orotracheal Time of Intubation: 10:00 Airway evaluation: Normal anatomy Mallampati Classification: Class 2 Medications: Etomidate, Succinylcholine Intubation method: Orotracheal Equipment used: Glidescope ETT size: 7.5 ETT secured at: Lips ETT secured at (cm): 23 Breath Sounds after Intubation: Equal End tidal CO2 confirmed: Yes Post Intubation Xray: Yes Intubation Complications: No complications - 3 blade Critical Care Note - Critical Care Note Total time excluding time spent on procedures (mins): 65 Comments: Critical care time 65 exclusive from separate billable procedures for a patient requiring complex medical decision making, and high potential for clinical deterioration. Time spent obtaining history from patient or surrogate, discussions with consultants, development of treatment plan with patient or surrogate, evaluation of patient's response to treatment, examination of patient, ordering and performing treatments and interventions, ordering and review of laboratory studies, re-evaluation of patient's condition, ordering and review of radiographic studies and review of old charts ED NIH Stroke Scale - NIH Stroke Scale *: 1. NIH scale should be completed with appropriate accompanying assessment tools. *: 2. The NIH should reflect what the patient is capable of doing and should not be coached by the clinician. 1a. Level of Consciousness: 0=Alert;keenly responsive -: 1=Drowsy -: 2=Obtunded -: 3=Coma/unresponsive or reflex to noxious stimuli. 1a. Responses: 3 1b. Orientation Questions: a. What month is it? -: b. How old are you? -: 0=Answers both questions correctly. -: 1=Answers one question correctly or patient is intubated or has orotracheal trauma. -: 2=Answers neither question correctly. 1b. Responses: 2 1c. Response to commands: a. Open and close eyes? -: b. Caul Dresser and release hand? -: Credit is given despite weakness. Demonstration of task is permitted. Substitute command if hands cannot be used. -: 0=Performs both tasks correctly -: 1=Performs one task correctly -: 2=Performs neither task correctly 1c. Responses: 2 2. Gaze: Establish eye contact and instruct patient to "Follow my finger" -: 0=Normal -: 1=Partial gaze palsy. Gaze is abnormal in one or both eyes, but where forced deviation or total gaze paresis is not present. -: 2=Forced deviation or total gaze paresis. 2. Responses: 2 3. Visual Whiting: Sees fingers in all four quadrants. -: 0=No visual loss. -: 1=Partial hemianopsia. -: 2=Complete hemianopsia. -: 3=Bilateral hemianopsia (including Cortical blindness) 3. Responses: 3 4. Facial Movement: Instruct patient to: -: a. Show me your teeth -: b. Raise your eyebrows -: c. Close your eyes -: d. Smile -: 0=Normal symmetrical movement -: 1=Minor paralysis (flattened nasolabial fold, asymmetry on smiling). -: 2=Partial paralysis (total or near total paralysis of lower face). -: 3=Complete paralysis of upper and lower face 4. Responses: 3 5. Motor functions (left arm): Alternate sides and extend each arm with palms down (90 degrees if sitting or 45 degrees for supine). -: 0=No drift;limb holds for full 10 seconds. -: 1=Drift; limb holds but drifts down before full 10 seconds, but does not hit bed. -: 2=Some effort against gravity; limb cannot get to or maintain position. -: 3=No effort against gravity; limb falls. -: 4=No movement. -: UN=Amputation, joint fusion, explain in comments. 5. Responses (left arm): UN 5. Motor Functions (right arm): Alternate sides and extend each arm with palms down (90 degrees if sitting or 45 degrees for supine). -: 0=No drift;limb holds for full 10 seconds. -: 1=Drift; limb holds but drifts down before full 10 seconds, but does not hit bed. -: 2=Some effort against gravity; limb cannot get to or maintain position. -: 3=No effort against gravity; limb falls. -: 4=No movement. -: UN=Amputation, joint fusion, explain in comments. 5. Responses (right arm): UN 6. Motor Functions (left leg): With patient lying supine, alternate sides and extend each leg (30 degrees always while supine). -: 0=No drift, leg holds position for full 5 seconds -: 1=Drift; leg falls before full 5 seconds but does not hit bed. -: 2=Some effort against gravity, leg falls to bed but some effort against gravity. -: 3=No effort against gravity, leg falls to bed immediately. -: 4=No movement. -: UN=Amputation, joint fusion; explain in comments. 6. Responses (left leg): UN 6. Motor Functions (right leg): With patient lying supine, alternate sides and extend each leg (30 degrees always while supine). -: 0=No drift, leg holds position for full 5 seconds -: 1=Drift; leg falls before full 5 seconds but does not hit bed. -: 2=Some effort against gravity, leg falls to bed but some effort against gravity. -: 3=No effort against gravity, leg falls to bed immediately. -: 4=No movement. -: UN=Amputation, joint fusion; explain in comments. 6. Responses (right leg): UN 7. Limb Ataxia: With eyes open instruct patient to: -: a. "Touch your finger to your nose". -: b. "Touch your heel to your kramer" -: 0=Absent -: 1=Present in one limb. -: 2=Present in two limbs. -: UN=Amputation or joint fusion; explain in comments. 7. Responses: UN 8. Sensory: Test sensation using pinprick or noxious stimuli. Test as many body parts as possible. -: 0=Normal;no sensory loss -: 1=Mile to moderate sensory loss (patient feels pin prick but is less sharp on affected side). -: 2=Severe or total sensory loss. 8. Responses: 2 9. Best Language: Instruct patient to: -: a. "Describe what you see in this picture." -: b. "Name the items in this picture." -: c. "Read these sentences." -: 0=No aphasia, normal -: 1=Mild to moderate aphasia. -: 2=Severe aphasia -: 3=Mute, global aphasia, no usable speech or auditory comprehension. 9. Responses: 3 10. Articulation, Dysarthia: Instruct patient to: -: "Read these words" or "Repeat these words" -: 0=Normal -: 1=Mild to moderate; patient may slur some words but can be understood without difficulty. -: 2=Severe; patients speech so slurred as to be unintelligible in the absence of dysphasia. -: UN=Intubated or other physical barrier, explain in comments. 10. Responses: UN 11. Extinction or inattention: 0=No abnormality -: 1= Visual, tactile, auditory, spatial, or personal inattention or extinction to bilateral simulation in one or the sensory modalities. -: 2=Profound ghada-inattention or ghada-inattention to more than one modality; does not recognize own hand. 11. Responses: 2 - Patient unresponsive and in a coma with a GCS of 3 Total Score: 22 Discharge - Discharge Clinical Impression: Intraparenchymal hemorrhage of brain Altered mental status Qualifiers: Altered mental status type: coma Coma depth: Cosmo coma 3-8 Coma timing: in the field (EMT or ambulance) Qualified Code(s): R40.2431 - Cosmo coma scale score 3-8, in the field [EMT or ambulance] Condition: Stable Disposition: [facility] Referrals: LATRICE ANDERSON MD [Primary Care Provider] - Follow up as needed
--- NOTE | 2019-02-15 10:23 | RADIOLOGY REPORT (SQ) ---
EXAM DESCRIPTION: CT HEAD WITHOUT COMPLETED DATE/TIME: 02/15/2019 10:00 am REASON FOR STUDY: left-sided weakness COMPARISON: 07/30/2017 TECHNIQUE: Axial images acquired through the brain without intravenous contrast. Images reviewed wi th bone, brain and subdural windows. Additional sagittal and coronal reconstructions were generated. Images stored on PACS. All CT scanners at this facility use dose modulation, iterative reconstruction, and/or weight based d osing when appropriate to reduce radiation dose to as low as reasonably achievable (ALARA). [facility]: Dose Right [facility]: CareDose [facility]: Dose Right [facility]: Teradose 4D [facility]: ApiFix RADIATION DOSE: mGy. LIMITATIONS: Fine detail obscured by patient motion. FINDINGS: VENTRICLES: There is intraparenchymal hemorrhage on the right with extension to the right and left lateral ventricular system. Likely effacement of the right lateral ventricle secondary to e xtensive mass effect. CEREBRUM: There is a large intraparenchymal hemorrhage centered within the right frontal parietal lob es, basal ganglia and insula. Additional area of hemorrhage within the temporal lobe, likely intrave ntricular. The largest area of hemorrhage measures approximately 8.9 x 4.3 cm on axial image 21. Th ere is associated extension into the right lateral ventricle with poor delineation and likely effacem ent. Additional evidence of intraventricular hemorrhagic extension into the left lateral ventricle. There is a significant right to left midline shift measuring approximately 1.6 cm with associated cordero bfalcine herniation. There is significant crowding at the suprasellar and ambient cisterns. Foramen magnum remains patent. Evaluation for superimposed ischemic infarct limited secondary to extensive motion artifact.) CEREBELLUM: No masses. No hemorrhage. No alteration of density. No evidence for acute infarction. EXTRAAXIAL SPACES: Holohemispheric effacement of the right-sided sulci secondary to mass effect. No definite extra-axial mass or collection. ORBITS AND GLOBE: No intra- or extraconal masses. Normal contour of globe without masses. CALVARIUM: No definite fracture. Evaluation limited secondary to extensive motion artifact. PARANASAL SINUSES: No fluid or mucosal thickening. SOFT TISSUES: No mass or hematoma. OTHER: No other significant finding. IMPRESSION: Limited exam secondary to extensive motion artifact. Large intraparenchymal hemorrhage centered within the right frontoparietal lobes, insula and basal ga nglia. There is associated intraventricular extension. Significant associated mass effect with appr oximately 1.6 cm of right to left midline shift and associated subfalcine herniation. Effacement of the ambient cistern and suprasellar cisterns. Foramen magnum remains patent. Pertinent positive or negative findings of the imaging study reported as a CRITICAL EXAM to GUADALUPE FELTON at10:07 on 02/15/2019. Category of Critical Exam: Intracranial hemorrhage EVIDENCE OF ACUTE STROKE: Intracranial hemorrhage COMMENT: Quality ID # [id number]: Final reports with documentation of one or more dose reduction techniques (e.g., Automated exposure control, adjustment of the mA and/or kV according to patient size, use of iterative reconstruction technique) TECHNICAL DOCUMENTATION: JOB ID: [id number] [employer]- All Rights Reserved Reading location - IP/workstation name: [email or web address]
[2019-02-15 10:33] LABS: INTERNATIONAL RATION (INR) 1.12
[2019-02-15 10:34] LABS: PARTIAL THROMBOPLASTIN TIME 32.5 SEC (23.5-35.8)
[2019-02-15 10:39] LABS: HEMATOCRIT 41.8 % (36.0-47.0); HEMOGLOBIN 14.1 g/dL (12.0-15.5); MEAN CORPUSCULAR HEMOGLOBIN 30.9 pg (27.0-33.4); MEAN CORPUSCULAR HGB CONC 33.7 g/dL (32.0-36.0); MEAN CORPUSCULAR VOLUME 92 fl (80-97); RED BLOOD COUNT 4.56 10^6/uL (3.72-5.28); RED CELL DISTRIBUTION WIDTH 13.9 % (11.5-14.0); WHITE BLOOD COUNT 23.5 10^3/uL (4.0-10.5)
[2019-02-15 10:51] LABS: ALANINE AMINOTRANSFERASE 26 U/L (9-52); ALBUMIN 4.1 g/dL (3.5-5.0); ALKALINE PHOSPHATASE 90 U/L (38-126); ANION GAP 14 (5-19); ASPARTATE AMINO TRANSFERASE 56 U/L (14-36); BILIRUBIN,DIRECT 0.3 mg/dL (0.0-0.4); BILIRUBIN,TOTAL 0.7 mg/dL (0.2-1.3); BLOOD UREA NITROGEN 23 mg/dL (7-20); CARBON DIOXIDE 21 mmol/L (22-30); CHLORIDE 106 mmol/L (98-107); GLUCOSE 227 mg/dL (75-110); POTASSIUM 3.9 mmol/L (3.6-5.0); TOTAL PROTEIN 8.5 g/dL (6.3-8.2)
[2019-02-15 11:13] LABS: ABSOLUTE LYMPHOCYTES# (MANUAL) 5.6 10^3/uL (0.5-4.7); ABSOLUTE MONOCYTES # (MANUAL) 0.9 10^3/uL (0.1-1.4); ABSOLUTE NEUTROPHILS# (MANUAL) 16.2 10^3/uL (1.7-8.2); BAND NEUTROPHILS % (MANUAL) 2 % (3-5); BASOPHILS % (MANUAL) 2 % (0-2); EOSINOPHILS % (MANUAL) 1 % (0-6); LYMPHOCYTES % (MANUAL) 21 % (13-45); MONOCYTES % (MANUAL) 4 % (3-13); SEGMENTED NEUTROPHILS % (MAN) 67 % (42-78); TOTAL CELLS COUNTED 100
[2019-02-15 11:15] LABS: PLATELET CLUMPS PRESENT; PLATELET COMMENT ADEQUATE; PLATELET COUNT 388 10^3/uL (150-450); POLYCHROMASIA SLIGHT
--- NOTE | 2019-02-15 11:16 | RADIOLOGY REPORT (SQ) ---
EXAM DESCRIPTION: CHEST SINGLE VIEW COMPLETED DATE/TIME: 02/15/2019 11:06 am REASON FOR STUDY: left-sided weakness COMPARISON: 06/11/2017 EXAM PARAMETERS: NUMBER OF VIEWS: One view. TECHNIQUE: Single frontal radiographic view of the chest acquired. RADIATION DOSE: NA LIMITATIONS: None. FINDINGS: LUNGS AND PLEURA: Emphysematous and chronic interstitial changes. No focal consolidation, pleural effusion or pneumothorax. MEDIASTINUM AND HILAR STRUCTURES: No discrete mass. HEART AND VASCULAR STRUCTURES: Normal heart size. Unfolded atherosclerotic aorta. BONES: Osteopenia. No acute findings. HARDWARE: Endotracheal tube tip 2.6 cm above the annie. Enteric tube tip coiled over proximal esoph brook on initial films. Subsequent films demonstrate enteric tube tip overlies gastric body. . Defi brillator pads overlie chest. OTHER: No other significant finding. IMPRESSION: Endotracheal tube tip 2.6 cm above the annie. No other evidence of acute cardiopulmonary complication. Enteric tube tip overlies gastric body on final projection. TECHNICAL DOCUMENTATION: JOB ID: [id number] [employer]- All Rights Reserved Reading location - IP/workstation name: [email or web address]
[2019-02-15 13:14] VITALS: BP 105/45
[2019-02-15] MEDS ORDERED: SUCCINYLCHOLINE CHLORIDE INJ 200 MG/10 ML VIAL ONE (14:21)
--- NOTE | 2019-02-15 21:50 | EKG REPORT ---
SEVERITY:- BORDERLINE ECG - SINUS RHYTHM SHORT GA INTERVAL, ACCELERATED AV CONDUCTION BORDERLINE R WAVE PROGRESSION, ANTERIOR LEADS : Confirmed by: Cassandra Isidro MD 15-Feb-2019 21:49:18
== END 2019-02-15 11:40 | disposition short-term general hospital (02) ==
LOC: ER 09:47
DX: I61.1 Nontraumatic intracerebral hemorrhage in hemisphere, cortical (principal); R40.2431 Glasgow coma scale score 3-8, in the field [EMT or ambulance]; E11.9 Type 2 diabetes mellitus without complications; I10 Essential (primary) hypertension; J44.9 Chronic obstructive pulmonary disease, unspecified; Z90.49 Acquired absence of other specified parts of digestive tract; Z90.710 Acquired absence of both cervix and uterus; Z88.2 Allergy status to sulfonamides
CPT/HCPCS: 93005; 99291; 51702; 36415; 82962; 85025; 85610; 85730; 80053; 84484; 71045; 70450; 94660; 93010; 31500; J2704; J0330; J3490